=== PATIENT | female | born 1975 | race Hispanic/Latino ===

== ENCOUNTER 2019-06-20 08:13 | Inpatient (IN) | payer OTHER ==
[2019-06-20 08:54] LABS: #Lymphocytes 1.5 thou/uL (1.20-3.40); #Monocytes 0.5 thou/uL (0.11-0.59); #Neutrophils 11.3 thou/uL (1.40-6.50); %Eosinophils 0.4 % (0.0-10.0); %Lymphocytes 11.1 % (21.0-51.0); %Monocytes 3.7 % (0.0-10.0); %Neutrophils 84.8 % (42.0-75.0); Hemoglobin 13.2 g/dL (12.0-16.0); Mean Corpuscular HGB CONC 33.5 g/dL (32.0-36.0); Mean Corpuscular Hemoglobin 29.2 pg (27.0-31.0); Mean Corpuscular Volume 87.2 fL (78.0-98.0); Mean Platelet Volume 9.7 fL (7.4-10.4); Platelet Count 232 thou/uL (130-400); RBC Distribution Width 12.6 % (11.5-14.5); Red Blood Cell (RBC) Count 4.51 mill/uL (4.20-5.40); White Blood Cell (WBC) Count 13.3 thou/uL (4.8-10.8)
[2019-06-20 08:57] LABS: BHCG - Serum Negative (NEGATIVE); Pregs Control Background? CLEAR/WHITE (CLR/WHITE); Pregs Control Bar Appear? YES (CONTROL BAR)
[2019-06-20 09:01] LABS: PTT 25.5 SEC (22.9-36.1); Prothrombin Time 12.9 SEC (12.0-14.7)
[2019-06-20 09:07] LABS: ALT (SGPT) 461 U/L (8-55); AST (SGOT) 504 U/L (5-34); Albumin 4.3 g/dL (3.5-5.0); Alkaline Phosphatase 70 U/L (40-110); Anion Gap 15 mmol/L (10-20); BUN (Urea Nitrogen) 6 mg/dL (7.0-18.7); Bilirubin, Total 0.3 mg/dL (0.2-1.2); Calc. Creatinine Clearance 0 mL/min (70-130); Calcium 9.3 mg/dL (7.8-10.44); Carbon Dioxide 20 mmol/L (22-29); Chloride 104 mmol/L (98-107); Estimated GFR-MDRD Greater than 90; Globulin 2.9 g/dL (2.4-3.5); Glucose 101 mg/dL (70-105); Lipase 37 U/L (8-78); Potassium 3.3 mmol/L (3.5-5.1); Protein, Total 7.2 g/dL (6.0-8.3); Sodium 136 mmol/L (136-145)
[2019-06-20] MEDS ORDERED: Ondansetron PF 4 MG/2 ML Vial ONE (09:41)
[2019-06-20] MEDS ORDERED: Morphine 4 MG/ML VIAL ONE (09:41)
[2019-06-20] MEDS ORDERED: Dextrose 50% Abboject 50 ML SYRINGE SLOW IVP PRN (11:18)
[2019-06-20] MEDS ORDERED: Ondansetron ODT 4 MG TAB PO PRN (11:18)
[2019-06-20] MEDS ORDERED: Promethazine HCl 25 MG/ML VIAL IM PRN ×2 (11:18)
[2019-06-20] MEDS ORDERED: Ketorolac Tromethamine 30 MG/ML VIAL IVP SCH (11:18)
[2019-06-20] MEDS ORDERED: hydrALAZINE 20 MG/ML VIAL SLOW IVP PRN (11:18)
[2019-06-20] MEDS ORDERED: Dextrose 5% in Water 1,000 ML IV PRN (11:18)
[2019-06-20] MEDS ORDERED: Morphine 2 MG/ML SYRINGE SLOW IVP PRN (11:18)
[2019-06-20] MEDS ORDERED: Sodium Chloride 0.9% 1,000 ML IV SCH (11:18)
[2019-06-20] MEDS ORDERED: Ibuprofen 800 MG TAB PO PRN (11:18)
[2019-06-20] MEDS ORDERED: Ondansetron PF 4 MG/2 ML Vial IVP PRN (11:18)
[2019-06-20] MEDS ORDERED: Iopamidol-370 76% 500 ML 1 ML ONE (11:19)
--- NOTE | 2019-06-20 11:30 | RAD ---
AP PELVIS: FINDINGS: No fracture or dislocation. IMPRESSION: No fracture or dislocation. POS: [facility]
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
[2019-06-20 12:13] LABS: Lactic Acid 2.2 mmol/L (0.5-2.2)
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
[2019-06-20] MEDS: traMADol HCl 50 MG TAB PO SCH ×3 (13:44→22:34)
[2019-06-20 14:12] VITALS: BMI 31.4
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
[2019-06-20 20:59] LABS: Hemoglobin 11.8 g/dL (12.0-16.0)
[2019-06-20] MEDS: traMADol HCl 50 MG TAB PO PRN (22:35)
[2019-06-20] MEDS: Senokot S 8.6-50 MG TAB PO SCH (22:35)
[2019-06-21] MEDS: traMADol HCl 50 MG TAB PO SCH ×4 (05:15→23:14)
[2019-06-21 05:28] LABS: #Eosinphils 0.1 thou/uL (0.0-0.7); #Lymphocytes 1.7 thou/uL (1.20-3.40); #Monocytes 0.4 thou/uL (0.11-0.59); #Neutrophils 3.8 thou/uL (1.40-6.50); %Basophils 0.5 % (0.0-1.0); %Eosinophils 1.8 % (0.0-10.0); %Lymphocytes 28.5 % (21.0-51.0); %Monocytes 6.5 % (0.0-10.0); %Neutrophils 62.7 % (42.0-75.0); Hemoglobin 12.1 g/dL (12.0-16.0); Mean Corpuscular HGB CONC 33.7 g/dL (32.0-36.0); Mean Corpuscular Hemoglobin 29.4 pg (27.0-31.0); Mean Corpuscular Volume 87.3 fL (78.0-98.0); Mean Platelet Volume 9.2 fL (7.4-10.4); Platelet Count 187 thou/uL (130-400); RBC Distribution Width 12.8 % (11.5-14.5); Red Blood Cell (RBC) Count 4.12 mill/uL (4.20-5.40); White Blood Cell (WBC) Count 6.1 thou/uL (4.8-10.8)
[2019-06-21 05:50] LABS: Phosphorus 3.4 mg/dL (2.3-4.7)
[2019-06-21 05:51] LABS: Anion Gap 11 mmol/L (10-20); BUN (Urea Nitrogen) 4 mg/dL (7.0-18.7); Calc. Creatinine Clearance 141 mL/min (70-130); Calcium 8.4 mg/dL (7.8-10.44); Carbon Dioxide 24 mmol/L (22-29); Chloride 105 mmol/L (98-107); Estimated GFR-MDRD Greater than 90; Glucose 94 mg/dL (70-105); Magnesium 2.1 mg/dL (1.6-2.6); Potassium 3.5 mmol/L (3.5-5.1); Sodium 136 mmol/L (136-145)
[2019-06-21] MEDS: Senokot S 8.6-50 MG TAB PO SCH ×2 (09:21→20:25)
[2019-06-21] MEDS: Polyethylene Glycol 3350 17 GM Packet PO SCH (09:21)
[2019-06-21] MEDS: traMADol HCl 50 MG TAB PO PRN ×2 (11:56→23:15)
[2019-06-21] MEDS ORDERED: FLU VACC QS2019-20(6MOS UP)/PF 60 MCG/0.5 ML SYRINGE IM ONE (14:00)
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
[2019-06-22 05:31] LABS: #Eosinphils 0.1 thou/uL (0.0-0.7); #Monocytes 0.6 thou/uL (0.11-0.59); #Neutrophils 6.1 thou/uL (1.40-6.50); %Basophils 0.1 % (0.0-1.0); %Eosinophils 1.5 % (0.0-10.0); %Lymphocytes 22.7 % (21.0-51.0); %Monocytes 6.6 % (0.0-10.0); %Neutrophils 69.1 % (42.0-75.0); Hemoglobin 11.5 g/dL (12.0-16.0); Mean Corpuscular HGB CONC 34.1 g/dL (32.0-36.0); Mean Corpuscular Hemoglobin 29.6 pg (27.0-31.0); Mean Corpuscular Volume 86.9 fL (78.0-98.0); Mean Platelet Volume 9.1 fL (7.4-10.4); Platelet Count 183 thou/uL (130-400); RBC Distribution Width 12.5 % (11.5-14.5); White Blood Cell (WBC) Count 8.9 thou/uL (4.8-10.8)
[2019-06-22] MEDS: traMADol HCl 50 MG TAB PO SCH ×4 (05:41→23:30)
[2019-06-22] MEDS: traMADol HCl 50 MG TAB PO PRN ×4 (05:42→23:31)
[2019-06-22 05:49] LABS: Anion Gap 10 mmol/L (10-20); BUN (Urea Nitrogen) 5 mg/dL (7.0-18.7); Calc. Creatinine Clearance 128 mL/min (70-130); Calcium 8.7 mg/dL (7.8-10.44); Carbon Dioxide 28 mmol/L (22-29); Chloride 103 mmol/L (98-107); Estimated GFR-MDRD Greater than 90; Glucose 93 mg/dL (70-105); Phosphorus 3.5 mg/dL (2.3-4.7); Potassium 3.9 mmol/L (3.5-5.1); Sodium 137 mmol/L (136-145)
[2019-06-22] MEDS ORDERED: Ibuprofen 600 MG TAB PO PRN (08:45)
[2019-06-22] MEDS: Senokot S 8.6-50 MG TAB PO SCH ×2 (09:03→20:58)
[2019-06-22] MEDS: Polyethylene Glycol 3350 17 GM Packet PO SCH (09:03)
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
[2019-06-23 04:55] LABS: #Eosinphils 0.2 thou/uL (0.0-0.7); #Lymphocytes 1.8 thou/uL (1.20-3.40); #Monocytes 0.7 thou/uL (0.11-0.59); #Neutrophils 7.5 thou/uL (1.40-6.50); %Basophils 0.2 % (0.0-1.0); %Eosinophils 1.7 % (0.0-10.0); %Lymphocytes 17.7 % (21.0-51.0); %Monocytes 6.6 % (0.0-10.0); %Neutrophils 73.8 % (42.0-75.0); Hemoglobin 11.3 g/dL (12.0-16.0); Mean Corpuscular HGB CONC 33.9 g/dL (32.0-36.0); Mean Corpuscular Hemoglobin 29.5 pg (27.0-31.0); Mean Platelet Volume 9.1 fL (7.4-10.4); Platelet Count 189 thou/uL (130-400); RBC Distribution Width 12.6 % (11.5-14.5); Red Blood Cell (RBC) Count 3.84 mill/uL (4.20-5.40); White Blood Cell (WBC) Count 10.2 thou/uL (4.8-10.8)
[2019-06-23] MEDS: traMADol HCl 50 MG TAB PO SCH ×2 (05:14→11:31)
[2019-06-23 08:32] LABS: Hemoglobin A1c 5.6 % (4.0-6.0)
[2019-06-23] MEDS: Senokot S 8.6-50 MG TAB PO SCH (08:58)
[2019-06-23] MEDS: Polyethylene Glycol 3350 17 GM Packet PO SCH (08:58)
[2019-06-23 09:16] LABS: ALT (SGPT) 191 U/L (8-55); AST (SGOT) 57 U/L (5-34); Albumin 3.7 g/dL (3.5-5.0); Alkaline Phosphatase 103 U/L (40-110); Anion Gap 10 mmol/L (10-20); BUN (Urea Nitrogen) 4 mg/dL (7.0-18.7); Bilirubin, Total 0.6 mg/dL (0.2-1.2); Calc. Creatinine Clearance 124 mL/min (70-130); Carbon Dioxide 30 mmol/L (22-29); Chloride 98 mmol/L (98-107); Estimated GFR-MDRD Greater than 90; Globulin 2.9 g/dL (2.4-3.5); Glucose 95 mg/dL (70-105); Potassium 3.8 mmol/L (3.5-5.1); Protein, Total 6.6 g/dL (6.0-8.3); Sodium 134 mmol/L (136-145)
[2019-06-23] MEDS: traMADol HCl 50 MG TAB PO PRN (09:36)
[2019-06-23 11:06] VITALS: BP 105/68; TEMP 98.3
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
== END 2019-06-23 15:00 | disposition home or self-care (01) | DRG 443 ==
LOC: ERS 08:13 → SURG A 10:37
PROVIDERS: ADMIT Surgery; ATTEND Surgery
DX: S36.113A Laceration of liver, unspecified degree, initial encounter (principal); G89.11 Acute pain due to trauma; T14.8XXA Other injury of unspecified body region, initial encounter; V47.5XXA Car driver injured in collision with fixed or stationary object in traffic accident, initial encounter; Y93.89 Activity, other specified; Y92.410 Unspecified street and highway as the place of occurrence of the external cause; Z90.49 Acquired absence of other specified parts of digestive tract; Z90.710 Acquired absence of both cervix and uterus
CPT/HCPCS: 36415; 36416; 70450; 71045; 71260; 72125; 72170; 74177; 80048; 80053; 83036; 83605; 83690; 83735; 84100; 84703; 85025; 85610; 85730; 86850; 86900; 86901; 90471; 90686; 96374; 96375; G0008; G0390; J2270; J2405; Q9967